=== PATIENT | female | born 1960 | race Caucasian/White ===

== ENCOUNTER 2016-11-28 17:58 | Emergency (ER) | payer OTHER ==
[~2016-11-28] VITALS: Ht 170.1 cm; Wt 88.0 kg
[~2016-11-28 17:58] MED LIST: AGGRENOX 25/2001 EA PO; ALPRAZOLAM0.5 M3 PO; ASPI-COR81 M1 PO; ATARAX25 MG PO; BACTRIM DS 8001 TA1 PO; BYSTOLIC2.5 MG PO; HYDR12.5C PO; HYDR25T PO; HYDRODIURIL25 MG PO; KENALOG0.1% TP; MEDROL DOSEPAK4 MG PO; NORCO 5-325 TA1 EACH PO; OXYGEN NAS; PREDNISONE10 MG PO; PROVENTIL0.09 MG/A1 INH; PYRIDIUM200 MG PO; SPIRONOLACTONE50 M1 PO; SYMBICORT1 AE1 INH; ZITHROMAX500 MG PO; ZOCOR20 MG PO
[2016-11-28] MEDS ORDERED: NAPROSYN500 MG PO (19:48)
[2016-11-28] MEDS ORDERED: CYCLOBENZAPRINE10 MG PO (19:48)
== END 2016-11-28 21:51 | disposition home or self-care (01) ==
LOC: ED 17:58
DX: S39.012A Strain of muscle, fascia and tendon of lower back, initial encounter (principal); F17.200 Nicotine dependence, unspecified, uncomplicated; Z90.89 Acquired absence of other organs; Z90.710 Acquired absence of both cervix and uterus; Z98.51 Tubal ligation status; Z79.899 Other long term (current) drug therapy; Z79.82 Long term (current) use of aspirin; Z91.041 Radiographic dye allergy status; W10.9XXA Fall (on) (from) unspecified stairs and steps, initial encounter; Y93.89 Activity, other specified; Y92.89 Other specified places as the place of occurrence of the external cause; Y99.9 Unspecified external cause status

== ENCOUNTER 2017-03-01 05:02 | Emergency (ER) | payer OTHER ==
[~2017-03-01] VITALS: Ht 167.6 cm; Wt 88.0 kg
[~2017-03-01 05:02] MED LIST changes: +CYCLOBENZAPRINE10 MG PO; +NAPROSYN500 MG PO
[2017-03-01] MEDS ORDERED: METOPROLOL SUCC25 M2 PO (05:14)
[2017-03-01] MEDS ORDERED: TAMIFLU30 MG PO (06:33)
[2017-03-01] MEDS ORDERED: PROVENTIL HFA6.7 GM INH (06:33)
== END 2017-03-01 06:54 | disposition home or self-care (01) ==
LOC: ED 05:02
DX: J11.1 Influenza due to unidentified influenza virus with other respiratory manifestations (principal); I10 Essential (primary) hypertension; J44.9 Chronic obstructive pulmonary disease, unspecified; Z91.041 Radiographic dye allergy status; Z79.899 Other long term (current) drug therapy; Z79.82 Long term (current) use of aspirin; Z86.73 Personal history of transient ischemic attack (TIA), and cerebral infarction without residual deficits

== ENCOUNTER → 2017-03-12 | Outpatient (CLI) | payer OTHER ==
[~2017-03-12] MED LIST changes: +METOPROLOL SUCC25 M2 PO; +PROVENTIL HFA6.7 GM INH; +TAMIFLU30 MG PO
== END | disposition home or self-care (01) ==
LOC: RAD 16:42
DX: J11.1 Influenza due to unidentified influenza virus with other respiratory manifestations (principal); R04.2 Hemoptysis; R07.81 Pleurodynia